=== PATIENT | male | born 1990 | race Caucasian/White ===

== ENCOUNTER 2017-03-18 17:04 | Emergency (ER) | payer MEDICAID, OTHER ==
[2017-03-18] MEDS ORDERED: Tetanus/Diphtheria Toxoids 0.5 ml Syringe IM ONE (17:42)
[2017-03-18] MEDS ORDERED: Lidocaine 1% w Epi 1:100,000 Inj INJ STA (17:42)
[2017-03-18] MEDS ORDERED: Bacitracin 500 Units/gm Oint Foilpak UD TOP ONE (17:42)
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
[2017-03-18 19:51] VITALS: BP 129/82; PULSE 82; RESP 20; TEMP 98
[2017-03-18 20:59] VITALS: O2SAT 100
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
== END 2017-03-18 19:51 | disposition home or self-care (01) ==
LOC: C.ER 17:04
DX: S16.1XXA Strain of muscle, fascia and tendon at neck level, initial encounter (principal); S33.5XXA Sprain of ligaments of lumbar spine, initial encounter; S66.811A Strain of other specified muscles, fascia and tendons at wrist and hand level, right hand, initial encounter; V49.49XA Driver injured in collision with other motor vehicles in traffic accident, initial encounter; Y92.410 Unspecified street and highway as the place of occurrence of the external cause